=== PATIENT | female | born 1960 | race Caucasian/White ===

== ENCOUNTER → 2016-12-15 | Outpatient (CLI) | payer BC ==
[~2016-12-15] MED LIST: REGADENOSON 0.4 MG/5 ML SYRINGE IV ONE
--- NOTE | 2016-12-15 11:35 | NM ---
EXAMINATION TYPE: NM stress lexiscan cardiolite DATE OF EXAM: 12/15/2016 11:24 AM COMPARISON: NONE HISTORY: Chest pain TECHNIQUE: After the intravenous administration of 10.1 mCi Tc 99m Sestamibi - Cardiolite resting SP ECT images acquired 45 minutes post injection. The patient received 0.4mg Lexiscan, 26.4 mCi Tc 99m Sestamibi - Stress images obtained [address] injection FINDINGS: Review of stress and rest SPECT images demonstrates there is a fixed defect involving the apex and an terior wall the myocardium. Gated analysis shows normal wall motion with an estimated left ventricul ar ejection fraction of 62 %. IMPRESSION: 1. Fixed defect involving the myocardium suggestive of previous infarction. 2. No definite stress-induced reversibility.
--- NOTE | 2016-12-15 12:19 | EST ---
DATE OF SERVICE: 12/15/2016 AGE: 56Y SEX: F HT: 5'3" WT: 198 lbs. Protocol Jose: Other: Lexiscan Cardiolite Stage: Dur. of Exercise: *Heart Rate Blood Pressure *Rest: 66 Rest: 138/83 * *Max. Achieved: 91 Maximum BP: 151/70 85% PMHR: 100% PMHR: *METS: INDICATIONS: Chest pain. MEDICATIONS: Ibuprofen, Xanax. Patient was given Lexiscan injection over a period of 15 seconds. Peak heart rate of 91 was achieved. Maximum blood pressure of 151/70 mmHg was noted. Resting EKG shows normal sinus rhythm with normal LA interval and QRS duration and normal ST-T waves. No ST segment depression suggestive of ischemia is noted. The results of the nuclear study will follow.
== END | disposition home or self-care (01) ==
LOC: RADNMMAIN 08:25
PROVIDERS: ATTEND Family Medicine
DX: R07.9 Chest pain, unspecified (principal)
CPT/HCPCS: 93017; 78452; A9500; J2785

== ENCOUNTER 2018-02-19 17:40 | Inpatient (IN) | payer BC ==
[2018-02-19] MEDS ORDERED: ONDANSETRON 4 MG/2 ML VIAL IVP STA (19:21)
[2018-02-19] MEDS ORDERED: MORPHINE SULFATE 4 MG/ML SYRINGE IV STA (19:21)
[2018-02-19] MEDS ORDERED: SODIUM CHLORIDE 0.9% 1,000 ML IV STA (19:21)
[2018-02-19] MEDS ORDERED: ACETAMINOPHEN TAB 325 MG TAB PO STA (19:22)
--- NOTE | 2018-02-19 19:26 | ED ---
Abdominal Pain HPI <Manjit Black - Last Filed: 02/19/18 21:49> - General Source: patient Mode of arrival: ambulatory Limitations: no limitations <Emma Green - Last Filed: 02/19/18 22:00> - General Chief Complaint: Abdominal Pain Stated Complaint: abd pain Time Seen by Provider: 02/19/18 19:00 - History of Present Illness Initial Comments: 57-year-old female patient presents the emergency department today for evaluation of lower abdominal pain and fever. Patient states that she's been having pain in her abdomen for the last 4 days. Patient states the pain is located across her lower abdomen and is sharp in nature. States it radiates into her back. Patient states that yesterday she started to become very nauseous. She states that she has been constipated and passing only very small amounts of diarrhea type stool. States that her abdomen is very tender. States that yesterday she developed a fever, has been as high as 101.1F at home. She has no appetite and has not been eating. States that she does have a history of diverticulitis and her symptoms seem similar to when she's had that in the past. States the only abdominal surgery she has had was a tumor removed several years ago. She denies any hematochezia, melena, or hematemesis. States that she was having painful urination a couple of days ago but that seems to have resolved. She denies any hematuria, urinary frequency, urinary urgency. Patient denies any recent rash, shortness breath, chest pain, numbness, tingling, dizziness, weakness, hematuria, dysuria, urinary urgency, urinary frequency, headache, visual changes, or any other complaints. (Emma Green) - Related Data Home Medications Medication Instructions Recorded Confirmed ALPRAZolam 1 mg PO HS 01/05/16 02/19/18 Atorvastatin [Lipitor] 40 mg PO DAILY 06/28/17 02/19/18 Metoprolol Succinate (ER) [Toprol 25 mg PO DAILY 06/28/17 02/19/18 Xl] Triamterene-Hctz 37.5-25Mg 1 cap PO DAILY 06/28/17 02/19/18 [Dyazide 37.5-25 Capsule] Ciprofloxacin HCl [Cipro] 500 mg PO Q12HR 02/19/18 02/19/18 Phentermine HCl [Adipex-P] 37.5 mg PO QAM 02/19/18 02/19/18 Potassium 99 mg PO DAILY 02/19/18 02/19/18 Vitamin B Complex 1 cap PO DAILY 02/19/18 02/19/18 Allergies Allergy/AdvReac Type Severity Reaction Status Date / Time hydromorphone HCl AdvReac Severe Nausea & Verified 02/19/18 18:38 [From Dilaudid] Vomiting Review of Systems ROS Other: All systems not noted in ROS Statement are negative. <Manjit Black - Last Filed: 02/19/18 21:49> ROS Other: All systems not noted in ROS Statement are negative. <Emma Green - Last Filed: 02/19/18 22:00> ROS Statement: Those systems with pertinent positive or pertinent negative responses have been documented in the HPI. 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 History of Any Multi-Drug Resistant Organisms: None Reported Past Surgical History: Hysterectomy, Joint Replacement Additional Past Surgical History / Comment(s): Tie wrap for rectal fistula last colonoscopy less than one year ago, removal of ovarian tumor which was benign, bilateral bunionectomies, bilateral total knee replacements. 06/19/17 total breast reduction, left and liposuction. Past Anesthesia/Blood Transfusion Reactions: No Reported Reaction Smoking Status: Former smoker Past Alcohol Use History: None Reported Past Drug Use History: Marijuana - Past Family History Mother Family Medical History: Cancer, CVA/TIA Additional Family Medical History / Comment(s): Mother is alive in her 80s with history of CVA and resides in a fdc. Father Family Medical History: No Reported History Additional Family Medical History / Comment(s): Father is alive in his 80s with history of hypertension and benign brain tumor. Brother(s) Additional Family Medical History / Comment(s): She has 3 brothers and one has from a drug overdose. She does not have any sisters. She has one daughter that was an adopted niece. <Emma Green - Last Filed: 02/19/18 22:00> General Exam Limitations: no limitations General appearance: alert, in no apparent distress, other (Social well-developed , well-nourished adult female patient in mild distress related to pain. Vital signs upon presentation are temperature 99.5F, pulse 95, respirations 16, blood pressure 126/82, pulse ox 97% on room air.) Eye exam: Present: normal appearance, PERRL, EOMI. Absent: scleral icterus, conjunctival injection, periorbital swelling ENT exam: Present: normal exam, normal oropharynx, mucous membranes moist Respiratory exam: Present: normal lung sounds bilaterally. Absent: respiratory distress, wheezes, rales, rhonchi, stridor Cardiovascular Exam: Present: regular rate, normal rhythm, normal heart sounds. Absent: systolic murmur, diastolic murmur, rubs, gallop, clicks GI/Abdominal exam: Present: soft, tenderness (Lower abdominal tenderness worse over the left lower quadrant), normal bowel sounds. Absent: distended, guarding , rebound, rigid Neurological exam: Present: alert, oriented X3, CN II-XII intact Psychiatric exam: Present: normal affect, normal mood Skin exam: Present: warm, dry, intact, normal color. Absent: rash <Emma Green - Last Filed: 02/19/18 22:00> Course <Manjit Black - Last Filed: 02/19/18 21:49> <Emma Green - Last Filed: 02/19/18 22:00> Vital Signs 02/19/18 02/19/18 18:27 21:07 Temperature 99.5 F 99.4 F Pulse Rate 95 71 Respiratory 16 18 Rate Blood Pressure 126/82 102/51 O2 Sat by Pulse 97 96 Oximetry - Reevaluation(s) Reevaluation #1: 02/19/18 21:42 Patient meets sepsis criteria at this time. Antibiotics ordered. (Emma Green) Medical Decision Making - Lab Data Result diagrams: 02/19/18 19:50 02/19/18 19:50 <Manjit Black - Last Filed: 02/19/18 21:49> - Lab Data Result diagrams: 02/19/18 19:50 02/19/18 19:50 - Radiology Data Radiology results: report reviewed, image reviewed <Emma Green - Last Filed: 02/19/18 22:00> - Medical Decision Making Patient reevaluated by myself, Dr. Black. Abdomen soft with mild tenderness left lower abdomen. Patient and family are updated on results and plan. Case was discussed in detail with Dr. Rubalcava, who will admit for surgical call with IV antibiotics and will reevaluate in the morning. I reviewed and agree with. Findings included all diagnostic interpretation and treatment plan. (Manjit Black) 57-year-old female patient presented to emergency department today for evaluation of lower abdominal pain and fever. Physical examination did reveal lower abdominal tenderness worse in the left lower quadrant. Labs reviewed and did reveal a mildly elevated white blood cell count. Lactic acid was negative. Urine has been sent for culture. CT of the abdomen and pelvis was obtained and did show complicated diverticulitis with pericolonic abscess and microperforation. My attending Dr. Black did speak to the surgeon salon shampoo assistant Dr. Berg. Patient will be admitted for surgical evaluation. We did start Levaquin and Flagyl. Did inform patient and family of results and plan, they are agreeable. (Emma Green) - Lab Data Lab Results 02/19/18 02/19/18 02/19/18 Range/Units 19:50 19:50 19:50 WBC 11.3 H (3.8-10.6) k/uL RBC 4.69 (3.80-5.40) m/uL Hgb 13.3 (11.4-16.0) gm/dL Hct 39.6 (34.0-46.0) % MCV 84.5 (80.0-100.0) fL MCH 28.5 (25.0-35.0) pg MCHC 33.7 (31.0-37.0) g/dL RDW 13.5 (11.5-15.5) % Plt Count 333 (150-450) k/uL Neutrophils % 76 % Lymphocytes % 14 % Monocytes % 8 % Eosinophils % 1 % Basophils % 0 % Neutrophils # 8.6 H (1.3-7.7) k/uL Lymphocytes # 1.5 (1.0-4.8) k/uL Monocytes # 0.9 (0-1.0) k/uL Eosinophils # 0.1 (0-0.7) k/uL Basophils # 0.0 (0-0.2) k/uL Sodium 138 (137-145) mmol/L Potassium 3.8 (3.5-5.1) mmol/L Chloride 95 L (98-107) mmol/L Carbon Dioxide 32 H (22-30) mmol/L Anion Gap 11 mmol/L BUN 12 (7-17) mg/dL Creatinine 0.80 (0.52-1.04) mg/dL Est GFR (CKD-EPI)AfAm >90 (>60 ml/min/1.73 sqM) Est GFR (CKD-EPI)NonAf 84 (>60 ml/min/1.73 sqM) Glucose 99 (74-99) mg/dL Plasma Lactic Acid Bassam 0.9 (0.7-2.0) mmol/L Calcium 9.3 (8.4-10.2) mg/dL Total Bilirubin 0.5 (0.2-1.3) mg/dL AST 23 (14-36) U/L ALT 37 (9-52) U/L Alkaline Phosphatase 81 (38-126) U/L Total Protein 6.4 (6.3-8.2) g/dL Albumin 3.6 (3.5-5.0) g/dL Amylase 54 (30-110) U/L Lipase 81 (23-300) U/L Urine Color Urine Appearance (Clear) Urine pH (5.0-8.0) Ur Specific [place] (1.001-1.035) Urine Protein (Negative) Urine Glucose (UA) (Negative) Urine Ketones (Negative) Urine Blood (Negative) Urine Nitrite (Negative) Urine Bilirubin (Negative) Urine Urobilinogen (<2.0) mg/dL Ur Leukocyte Esterase (Negative) Urine RBC (0-5) /hpf Urine WBC (0-5) /hpf Ur Squamous Epith Cells (0-4) /hpf Urine Bacteria (None) /hpf Hyaline Casts (0-2) /lpf Urine Mucus (None) /hpf 02/19/18 Range/Units 19:50 WBC (3.8-10.6) k/uL RBC (3.80-5.40) m/uL Hgb (11.4-16.0) gm/dL Hct (34.0-46.0) % MCV (80.0-100.0) fL MCH (25.0-35.0) pg MCHC (31.0-37.0) g/dL RDW (11.5-15.5) % Plt Count (150-450) k/uL Neutrophils % % Lymphocytes % % Monocytes % % Eosinophils % % Basophils % % Neutrophils # (1.3-7.7) k/uL Lymphocytes # (1.0-4.8) k/uL Monocytes # (0-1.0) k/uL Eosinophils # (0-0.7) k/uL Basophils # (0-0.2) k/uL Sodium (137-145) mmol/L Potassium (3.5-5.1) mmol/L Chloride (98-107) mmol/L Carbon Dioxide (22-30) mmol/L Anion Gap mmol/L BUN (7-17) mg/dL Creatinine (0.52-1.04) mg/dL Est GFR (CKD-EPI)AfAm (>60 ml/min/1.73 sqM) Est GFR (CKD-EPI)NonAf (>60 ml/min/1.73 sqM) Glucose (74-99) mg/dL Plasma Lactic Acid Bassam (0.7-2.0) mmol/L Calcium (8.4-10.2) mg/dL Total Bilirubin (0.2-1.3) mg/dL AST (14-36) U/L ALT (9-52) U/L Alkaline Phosphatase (38-126) U/L Total Protein (6.3-8.2) g/dL Albumin (3.5-5.0) g/dL Amylase (30-110) U/L Lipase (23-300) U/L Urine Color Yellow Urine Appearance Cloudy H (Clear) Urine pH 5.5 (5.0-8.0) Ur Specific [place] 1.019 (1.001-1.035) Urine Protein 1+ H (Negative) Urine Glucose (UA) Negative (Negative) Urine Ketones Negative (Negative) Urine Blood Trace H (Negative) Urine Nitrite Negative (Negative) Urine Bilirubin Negative (Negative) Urine Urobilinogen <2.0 (<2.0) mg/dL Ur Leukocyte Esterase Small H (Negative) Urine RBC 1 (0-5) /hpf Urine WBC 15 H (0-5) /hpf Ur Squamous Epith Cells 9 H (0-4) /hpf Urine Bacteria Occasional H (None) /hpf Hyaline Casts 1 (0-2) /lpf Urine Mucus Rare H (None) /hpf - Radiology Data Computed tomography scan abdomen and pelvis with contrast was obtained. Report was reviewed in its entirety. Impression by Dr. Carty shows acute complicated sigmoid diverticulitis with pericolonic abscess and additional foci of loculated microperforation/free air. The approximately 3.3 x 4.0 x 3.3 cm pericolic abscess is seen along the mesenteric border of the sigmoid colon is intimately associated with the bowel wall and a portion that is possibly submucosal, therefore percutaneous drainage may not be accessible. (Emma Green) Disposition <Manjit Black - Last Filed: 02/19/18 21:49> Decision to Admit Reason: Admit from EC Decision Date: 02/19/18 Decision Time: 22:00 <Emma Green - Last Filed: 02/19/18 22:00> Clinical Impression: Diverticulitis of intestine with perforation and abscess, Sepsis Disposition: ADMITTED IP TO THIS [facility] Condition: Serious Referrals: Floyd Jorge DO [Primary Care Provider] - 1-2 days
[2018-02-19 20:12] LABS: Appearance,Urine Cloudy (Clear); Bacteria,Urine Occasional /hpf; Basophils % (A) 0 %; Bilirubin,Urine Negative (Negative); Blood,Urine Trace (Negative); Color,Urine Yellow; Eosinophils # (A) 0.1 k/uL (0-0.7); Eosinophils % (A) 1 %; Glucose,Urine (UA) Negative (Negative); HCT 39.6 % (34.0-46.0); HGB 13.3 gm/dL (11.4-16.0); Hyaline Casts,Urine 1 /lpf (0-2); Ketones,Urine Negative (Negative); Leukocyte Esterase,Urine Small (Negative); Lymphocytes # (A) 1.5 k/uL (1.0-4.8); Lymphocytes % (A) 14 %; MCH 28.5 pg (25.0-35.0); MCHC 33.7 g/dL (31.0-37.0); MCV 84.5 fL (80.0-100.0); Mean Platelet Volume 7.3; Monocytes # (A) 0.9 k/uL (0-1.0); Monocytes % (A) 8 %; Mucus,Urine Rare /hpf; Neutrophils # (A) 8.6 k/uL (1.3-7.7); Neutrophils % (A) 76 %; Nitrite,Urine Negative (Negative); PH, Urine 5.5 (5.0-8.0); Platelet Count 333 k/uL (150-450); Protein,Urine 1+ (Negative); RBC 4.69 m/uL (3.80-5.40); RBC,Urine 1 /hpf (0-5); RDW 13.5 % (11.5-15.5); Specific Gravity,Urine 1.019 (1.001-1.035); Squamous Epithelial Cell,Urine 9 /hpf (0-4); Urobilinogen,Urine <2.0 mg/dL (<2.0); WBC 11.3 k/uL (3.8-10.6); WBC,Urine 15 /hpf (0-5)
[2018-02-19 20:19] LABS: ALT 37 U/L (9-52); AST 23 U/L (14-36); Albumin 3.6 g/dL (3.5-5.0); Alkaline Phosphatase 81 U/L (38-126); Amylase 54 U/L (30-110); Anion Gap 11 mmol/L; Blood Urea Nitrogen 12 mg/dL (7-17); Calcium 9.3 mg/dL (8.4-10.2); Carbon Dioxide 32 mmol/L (22-30); Chloride 95 mmol/L (98-107); Glucose 99 mg/dL (74-99); Lipase 81 U/L (23-300); Potassium 3.8 mmol/L (3.5-5.1); Sodium 138 mmol/L (137-145); Total Bilirubin 0.5 mg/dL (0.2-1.3); Total Protein 6.4 g/dL (6.3-8.2)
--- NOTE | 2018-02-19 21:29 | CT ---
EXAMINATION TYPE: CT abdomen pelvis w con DATE OF EXAM: 02/19/2018 HISTORY: Abdominal pain with nausea CT DLP: 1106.4mGycm Automated Exposure Control for Dose Reduction was Utilized. CONTRAST: CT scan of the abdomen and pelvis is performed with IV Contrast, patient injected with 100 mL of Isov ue 300. COMPARISON: None. FINDINGS: LUNG BASES: No significant abnormality is appreciated. LIVER/GB: There is a fluid attenuated left hepatic lobe cyst measuring 1.4 cm. Remainder the liver is grossly unremarkable. No radiopaque gallstones. PANCREAS: No significant abnormality is seen. No ductal dilatation. SPLEEN: Small splenule seen adjacent to the port lions spleen. No splenomegaly. ADRENALS: No significant abnormality is seen. KIDNEYS: No significant abnormality is seen. BOWEL: There is an approximately 3.3 x 4.0 x 3.3 cm pericolonic abscess with air-fluid level and nume eva foci of internal air along the mesenteric border of the sigmoid colon with associated surroundin g inflammatory fat stranding and phlegmonous changes. Other encapsulated foci of free air are seen mo re anteriorly on series 3 image 67. This is indicative of microperforation of acute diverticulitis. T here is associated bowel wall thickening and hyperemia as well as fascial plane thickening. No second kulwinder colonic ileus or obstruction is seen. UTERUS/ADNEXA: Uterus appears surgically absent. LYMPH NODES: No greater than 1cm abdominal or pelvic lymph nodes are appreciated. OSSEOUS STRUCTURES: Osseous structures appear intact.. OTHER: Moderate calcific and noncalcific atheromatous plaquing is seen of the abdominal aorta and its branches. Abdominal aorta is of normal course and caliber. IMPRESSION: Acute complicated sigmoid diverticulitis with pericolonic abscess and additional foci of loculated microperforation/free air. The approximately 3.3 x 4.0 x 3.3 cm pericolonic abscess is seen along the mesenteric border of the sigmoid colon and is intimately associated with the bowel wall wi th a portion that is possibly submucosal, therefore percutaneous drainage may not be accessible.
[2018-02-19] MEDS ORDERED: metroNIDAZOLE-NS PMX 500 MG in SALINE 1 100ML.BAG IVPB STA (21:38)
[2018-02-19] MEDS ORDERED: MORPHINE SULFATE 4 MG/ML SYRINGE IVP STA (21:38)
[2018-02-19] MEDS ORDERED: LEVOFLOXACIN 750MG-D5W PMX 750 MG in DEXTROSE/WATER 1 150ML.BAG IVPB STA (21:38)
[2018-02-19] MEDS ORDERED: NALOXONE 0.4 MG/ML 1 ML VIAL IV PRN (21:55)
[2018-02-19 23:04] VITALS: BMI 37.3
[2018-02-19] MEDS: SODIUM CHLORIDE 0.9% 1,000 ML IV SCH (23:55)
[2018-02-20] MEDS: LORazepam 2 MG/ML INJ IV PRN ×2 (00:09→22:09)
[2018-02-20] MEDS: ONDANSETRON 4 MG/2 ML VIAL IVP PRN ×3 (00:12→17:04)
[2018-02-20] MEDS: MORPHINE SULFATE 4 MG/ML SYRINGE IV PRN ×3 (04:55→18:41)
[2018-02-20 07:29] LABS: Basophils % (A) 0 %; Eosinophils # (A) 0.1 k/uL (0-0.7); Eosinophils % (A) 1 %; HGB 11.5 gm/dL (11.4-16.0); Lymphocytes # (A) 1.2 k/uL (1.0-4.8); Lymphocytes % (A) 14 %; MCH 27.7 pg (25.0-35.0); MCV 86.5 fL (80.0-100.0); Mean Platelet Volume 7.2; Monocytes # (A) 0.5 k/uL (0-1.0); Monocytes % (A) 6 %; Neutrophils # (A) 6.1 k/uL (1.3-7.7); Neutrophils % (A) 76 %; Platelet Count 289 k/uL (150-450); RBC 4.16 m/uL (3.80-5.40); RDW 13.5 % (11.5-15.5)
[2018-02-20 07:54] LABS: ALT 28 U/L (9-52); AST 18 U/L (14-36); Albumin 2.9 g/dL (3.5-5.0); Alkaline Phosphatase 64 U/L (38-126); Anion Gap 7 mmol/L; Blood Urea Nitrogen 10 mg/dL (7-17); Calcium 8.3 mg/dL (8.4-10.2); Carbon Dioxide 31 mmol/L (22-30); Chloride 101 mmol/L (98-107); Glucose 91 mg/dL (74-99); Potassium 3.7 mmol/L (3.5-5.1); Sodium 139 mmol/L (137-145); Total Bilirubin 0.3 mg/dL (0.2-1.3); Total Protein 5.2 g/dL (6.3-8.2)
[2018-02-20] MEDS: SODIUM CHLORIDE 0.9% 1,000 ML IV SCH (12:52)
--- NOTE | 2018-02-20 19:01 | P.GSHP ---
History of Present Illness H&P Date: 02/20/18 Chief Complaint: Left lower quadrant pain This a 57-year-old female who was admitted through the emergency room with complaints of severe left lower quadrant pain. Patient was worked up with CAT scan. Senna evidence of active diverticulitis with a possible mural wall abscess. Patient states her pain is mainly left lower quadrant. She's had it for several days. 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 History of Any Multi-Drug Resistant Organisms: None Reported Past Surgical History: Hysterectomy, Joint Replacement Additional Past Surgical History / Comment(s): Tie wrap for rectal fistula last colonoscopy less than one year ago, removal of ovarian tumor which was benign, bilateral bunionectomies, bilateral total knee replacements. 06/19/17 total breast reduction, left and liposuction. Past Anesthesia/Blood Transfusion Reactions: No Reported Reaction Past Psychological History: Depression Smoking Status: Former smoker Past Alcohol Use History: None Reported Additional Past Alcohol Use History / Comment(s): Patient is a smoker one pack per day since she was 16 years of age. She denies any medical marijuana, marijuana, street drug or alcohol use. She works cleaning homes. Past Drug Use History: Marijuana - Past Family History Mother Family Medical History: Cancer, CVA/TIA Additional Family Medical History / Comment(s): Mother is alive in her 80s with history of CVA and resides in a [facility]. Father Family Medical History: No Reported History Additional Family Medical History / Comment(s): Father is alive in his 80s with history of hypertension and benign brain tumor. Brother(s) Additional Family Medical History / Comment(s): She has 3 brothers and one has from a drug overdose. She does not have any sisters. She has one daughter that was an adopted niece. Medications and Allergies Home Medications Medication Instructions Recorded Confirmed Type ALPRAZolam 1 mg PO HS 01/04/02/19/18 History Atorvastatin [Lipitor] 40 mg PO DAILY 06/28/17 02/19/18 History Metoprolol Succinate (ER) [Toprol 25 mg PO DAILY 06/28/17 02/19/18 History Xl] Triamterene-Hctz 37.5-25Mg 1 cap PO DAILY 06/28/17 02/19/18 History [Dyazide 37.5-25 Capsule] Ciprofloxacin HCl [Cipro] 500 mg PO Q12HR 02/19/18 02/19/18 History Phentermine HCl [Adipex-P] 37.5 mg PO QAM 02/19/18 02/19/18 History Potassium 99 mg PO DAILY 02/19/18 02/19/18 History Vitamin B Complex 1 cap PO DAILY 02/19/18 02/19/18 History Allergies Allergy/AdvReac Type Severity Reaction Status Date / Time hydromorphone HCl AdvReac Severe Nausea & Verified 02/19/18 18:38 [From Dilaudid] Vomiting Surgical - Exam Vital Signs Temp Pulse Resp BP Pulse Ox 99.5 F 95 16 126/82 97 02/19/18 18:27 02/19/18 18:27 02/19/18 18:27 02/19/18 18:27 02/19/18 18:27 - General well developed, moderate distress - Eyes PERRL - ENT normal pinna - Neck no masses - Respiratory normal expansion - Cardiovascular Rhythm: regular - Abdomen Marked left lower quadrant tenderness Abdomen: soft Results - Labs 02/20/18 06:38 02/20/18 06:38 Abnormal Lab Results - Last 24 Hours (Table) 02/19/18 02/19/18 02/19/18 Range/Units 19:50 19:50 19:50 WBC 11.3 H (3.8-10.6) k/uL Neutrophils # 8.6 H (1.3-7.7) k/uL Chloride 95 L (98-107) mmol/L Carbon Dioxide 32 H (22-30) mmol/L Calcium (8.4-10.2) mg/dL Total Protein (6.3-8.2) g/dL Albumin (3.5-5.0) g/dL Urine Appearance Cloudy H (Clear) Urine Protein 1+ H (Negative) Urine Blood Trace H (Negative) Ur Leukocyte Esterase Small H (Negative) Urine WBC 15 H (0-5) /hpf Ur Squamous Epith Cells 9 H (0-4) /hpf Urine Bacteria Occasional H (None) /hpf Urine Mucus Rare H (None) /hpf 02/20/18 Range/Units 06:38 WBC (3.8-10.6) k/uL Neutrophils # (1.3-7.7) k/uL Chloride (98-107) mmol/L Carbon Dioxide 31 H (22-30) mmol/L Calcium 8.3 L (8.4-10.2) mg/dL Total Protein 5.2 L (6.3-8.2) g/dL Albumin 2.9 L (3.5-5.0) g/dL Urine Appearance (Clear) Urine Protein (Negative) Urine Blood (Negative) Ur Leukocyte Esterase (Negative) Urine WBC (0-5) /hpf Ur Squamous Epith Cells (0-4) /hpf Urine Bacteria (None) /hpf Urine Mucus (None) /hpf Microbiology - Last 24 Hours (Table) 02/19/18 20:46 Urine Culture - Preliminary Urine,Voided Diabetes panel 02/19/18 02/20/18 Range/Units 19:50 06:38 Sodium 138 139 (137-145) mmol/L Potassium 3.8 3.7 (3.5-5.1) mmol/L Chloride 95 L 101 (98-107) mmol/L Carbon Dioxide 32 H 31 H (22-30) mmol/L BUN 12 10 (7-17) mg/dL Creatinine 0.80 0.65 (0.52-1.04) mg/dL Glucose 99 91 (74-99) mg/dL Calcium 9.3 8.3 L (8.4-10.2) mg/dL AST 23 18 (14-36) U/L ALT 37 28 (9-52) U/L Alkaline Phosphatase 81 64 (38-126) U/L Total Protein 6.4 5.2 L (6.3-8.2) g/dL Albumin 3.6 2.9 L (3.5-5.0) g/dL Calcium panel 02/19/18 02/20/18 Range/Units 19:50 06:38 Calcium 9.3 8.3 L (8.4-10.2) mg/dL Albumin 3.6 2.9 L (3.5-5.0) g/dL Pituitary panel 02/19/18 02/20/18 Range/Units 19:50 06:38 Sodium 138 139 (137-145) mmol/L Potassium 3.8 3.7 (3.5-5.1) mmol/L Chloride 95 L 101 (98-107) mmol/L Carbon Dioxide 32 H 31 H (22-30) mmol/L BUN 12 10 (7-17) mg/dL Creatinine 0.80 0.65 (0.52-1.04) mg/dL Glucose 99 91 (74-99) mg/dL Calcium 9.3 8.3 L (8.4-10.2) mg/dL Adrenal panel 02/19/18 02/20/18 Range/Units 19:50 06:38 Sodium 138 139 (137-145) mmol/L Potassium 3.8 3.7 (3.5-5.1) mmol/L Chloride 95 L 101 (98-107) mmol/L Carbon Dioxide 32 H 31 H (22-30) mmol/L BUN 12 10 (7-17) mg/dL Creatinine 0.80 0.65 (0.52-1.04) mg/dL Glucose 99 91 (74-99) mg/dL Calcium 9.3 8.3 L (8.4-10.2) mg/dL Total Bilirubin 0.5 0.3 (0.2-1.3) mg/dL AST 23 18 (14-36) U/L ALT 37 28 (9-52) U/L Alkaline Phosphatase 81 64 (38-126) U/L Total Protein 6.4 5.2 L (6.3-8.2) g/dL Albumin 3.6 2.9 L (3.5-5.0) g/dL - Imaging CT scan - pelvis: report reviewed (Acute diverticulitis with abscess measuring 3 x 4 cm along the mesenteric border of the colon.) Assessment and Plan Assessment: Acute diverticulitis. Patient will be observed she is currently receiving IV antibiotics. If her condition does not improve she may need exploratory laparotomy with possible colostomy. I discussed the slight the patient and her .
[2018-02-21] MEDS: MORPHINE SULFATE 4 MG/ML SYRINGE IV PRN ×3 (03:30→19:15)
[2018-02-21] MEDS: SODIUM CHLORIDE 0.9% 1,000 ML IV SCH ×2 (03:35→14:34)
[2018-02-21] MEDS: ACETAMINOPHEN TAB 325 MG TAB PO PRN (07:49)
[2018-02-21] MEDS: PIPERACILLIN-TAZOBACTAM 3.375 GM in DEXTROSE/WATER 1 50ML.BAG IVPB SCH ×2 (11:10→16:03)
--- NOTE | 2018-02-21 11:35 | P.PN ---
Subjective Progress Note Date: 02/21/18 57-year-old female seen this morning at the bedside. Patient states abdominal pain significantly improved. Patient indicated that initially was having severe left lower quadrant abdominal pain which has since resolved. CAT scan showed evidence of acute diverticulitis with possible mural abscess. Patient is asking for diet to be advanced. Currently on IV Zosyn and afebrile labs pending Objective - Vital Signs Vital signs: Vital Signs Temp 97.9 F 02/21/18 08:16 Pulse 96 02/21/18 08:16 Resp 18 02/21/18 08:16 BP 137/86 02/21/18 08:16 Pulse Ox 95 02/21/18 00:01 Intake & Output 02/20/18 02/21/18 02/21/18 18:59 06:59 18:59 Other: # Voids 1 1 - Exam Physical exam 57-year-old female sitting up in bed appears in no acute distress Lungs clear adequate air movement Heart S1-S2 audible regular Abdomen soft no facial grimacing" with palpitation to the abdominal wall bowel tones present states passing gas no stool mild tenderness to the left lower quadrant nondistended Extremities no edema - Labs CBC & Chem 7: 02/20/18 06:38 02/20/18 06:38 Labs: Microbiology - Last 24 Hours (Table) 02/19/18 19:50 Blood Culture - Preliminary Blood No Growth after 24 hours 02/19/18 20:46 Urine Culture - Preliminary Urine,Voided Assessment and Plan Assessment: Impression Present on admission left lower quadrant abdominal pain suspect due to acute diverticulitis with abscess measuring 3 x 4 cm along the mesenteric border of the colon Plan IV antibiotics Zosyn as ordered Pain control DVT and GI prophylaxis Nothing by mouth except ice chips popsicles clear liquid Will follow with further surgical recommendations The above impression and plan of care have been discussed and directed by signing physician. Bertha Marr nurse practitioner acting as scribe for signing physician.
[2018-02-21 11:43] LABS: Basophils % (A) 0 %; Eosinophils # (A) 0.2 k/uL (0-0.7); Eosinophils % (A) 2 %; HCT 37.8 % (34.0-46.0); HGB 12.2 gm/dL (11.4-16.0); Lymphocytes # (A) 1.4 k/uL (1.0-4.8); Lymphocytes % (A) 18 %; MCH 28.6 pg (25.0-35.0); MCHC 32.3 g/dL (31.0-37.0); MCV 88.7 fL (80.0-100.0); Mean Platelet Volume 6.7; Monocytes # (A) 0.4 k/uL (0-1.0); Monocytes % (A) 6 %; Neutrophils # (A) 5.6 k/uL (1.3-7.7); Neutrophils % (A) 72 %; Platelet Count 315 k/uL (150-450); RBC 4.27 m/uL (3.80-5.40); RDW 13.5 % (11.5-15.5); WBC 7.8 k/uL (3.8-10.6)
[2018-02-21 11:54] LABS: ALT 33 U/L (9-52); AST 21 U/L (14-36); Albumin 3.1 g/dL (3.5-5.0); Alkaline Phosphatase 62 U/L (38-126); Anion Gap 12 mmol/L; Blood Urea Nitrogen 11 mg/dL (7-17); Calcium 8.8 mg/dL (8.4-10.2); Carbon Dioxide 24 mmol/L (22-30); Chloride 103 mmol/L (98-107); Glucose 72 mg/dL (74-99); Potassium 3.8 mmol/L (3.5-5.1); Sodium 139 mmol/L (137-145); Total Bilirubin 0.4 mg/dL (0.2-1.3); Total Protein 5.4 g/dL (6.3-8.2)
[2018-02-21] MEDS: METOPROLOL SUCCINATE (ER) 25 MG TAB.ER.24H PO SCH (14:33)
--- NOTE | 2018-02-21 16:28 | P.CONS ---
History of Present Illness - Reason for Consult Recommendations regarding antihypertensive medications - History of Present Illness Patient is a pleasant 57-year-old female is admitted for left lower quadrant abdominal pain nausea vomiting found to have acute diverticulitis with microperforation and a contained abscess. Patient was recently discharged to from the ER after she was diagnosed with possible urinary tract infection was discharged on Cipro comes back to following day didn't even take a couple of Cipro because she was throwing up. Patient is on diuretic therapy for bilateral pedal edema was started by her [employer] doctor. Patient also take metoprolol for Hypertension. Patient blood pressure is as low as 90 systolic on this admission patient is receiving IV fluids at this time. Patient nausea vomiting improved patient abdominal pain improved. Review of Systems REVIEW OF SYSTEMS: CONSTITUTIONAL: No fever, no malaise, no fatigue. HEENT: No recent visual problems or hearing problems. Denied any sore throat. CARDIOVASCULAR: No chest pain, orthopnea, PND, no palpitations, no syncope. PULMONARY: No shortness of breath, no cough, no hemoptysis. GASTROINTESTINAL: As mentioned in HPI NEUROLOGICAL: No headaches, no weakness, no numbness. HEMATOLOGICAL: Denies any bleeding or petechiae. GENITOURINARY: Denies any burning micturition, frequency, or urgency. MUSCULOSKELETAL/RHEUMATOLOGICAL: Denies any joint pain, swelling, or any muscle pain. ENDOCRINE: Denies any polyuria or polydipsia. The rest of the 14-point review of systems is negative. 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 History of Any Multi-Drug Resistant Organisms: None Reported Past Surgical History: Hysterectomy, Joint Replacement Additional Past Surgical History / Comment(s): Tie wrap for rectal fistula last colonoscopy less than one year ago, removal of ovarian tumor which was benign, bilateral bunionectomies, bilateral total knee replacements. 06/19/17 total breast reduction, left and liposuction. Past Anesthesia/Blood Transfusion Reactions: No Reported Reaction Past Psychological History: Depression Smoking Status: Former smoker Past Alcohol Use History: None Reported Additional Past Alcohol Use History / Comment(s): Patient is a smoker one pack per day since she was 16 years of age. She denies any medical marijuana, marijuana, street drug or alcohol use. She works cleaning homes. Past Drug Use History: Marijuana - Past Family History Mother Family Medical History: Cancer, CVA/TIA Additional Family Medical History / Comment(s): Mother is alive in her 80s with history of CVA and resides in a intermediate. Father Family Medical History: No Reported History Additional Family Medical History / Comment(s): Father is alive in his 80s with history of hypertension and benign brain tumor. Brother(s) Additional Family Medical History / Comment(s): She has 3 brothers and one has from a drug overdose. She does not have any sisters. She has one daughter that was an adopted niece. Medications and Allergies Home Medications Medication Instructions Recorded Confirmed Type ALPRAZolam 1 mg PO HS 01/05/16 02/19/18 History Atorvastatin [Lipitor] 40 mg PO DAILY 06/28/17 02/19/18 History Metoprolol Succinate (ER) [Toprol 25 mg PO DAILY 06/28/17 02/19/18 History Xl] Triamterene-Hctz 37.5-25Mg 1 cap PO DAILY 06/28/17 02/19/18 History [Dyazide 37.5-25 Capsule] Ciprofloxacin HCl [Cipro] 500 mg PO Q12HR 02/19/18 02/19/18 History Phentermine HCl [Adipex-P] 37.5 mg PO QAM 02/19/18 02/19/18 History Potassium 99 mg PO DAILY 02/19/18 02/19/18 History Vitamin B Complex 1 cap PO DAILY 02/19/18 02/19/18 History Allergies Allergy/AdvReac Type Severity Reaction Status Date / Time hydromorphone HCl AdvReac Severe Nausea & Verified 02/19/18 18:38 [From Dilaudid] Vomiting Physical Exam Vitals: Vital Signs Temp Pulse Pulse Resp BP Pulse Ox 02/21/18 14:45 98.3 F 60 16 117/75 96 02/21/18 08:16 97.9 F 64 96 18 137/86 02/21/18 00:01 98.0 F 74 14 97/64 95 02/20/18 20:10 97.7 F 70 16 130/79 95 Intake and Output 02/21/18 02/21/18 02/21/18 06:59 14:59 22:59 Intake Total 450 Balance 450 Intake: Intake, IV Titration 450 Amount Sodium Chloride 0.9% 1, 450 000 ml @ 75 mls/hr IV . [id number] [facility] Rx#:[id number] Other: # Voids 1 PHYSICAL EXAMINATION: GENERAL: The patient is alert and oriented x3, not in any acute distress. Well developed, well nourished. HEENT: Pupils are round and equally reacting to light. EOMI. No scleral icterus. No conjunctival pallor. Normocephalic, atraumatic. No pharyngeal erythema. No thyromegaly. CARDIOVASCULAR: S1 and S2 present. No murmurs, rubs, or gallops. PULMONARY: Chest is clear to auscultation, no wheezing or crackles. ABDOMEN: Soft, nontender, nondistended, normoactive bowel sounds. No palpable organomegaly. MUSCULOSKELETAL: No joint swelling or deformity. EXTREMITIES: No cyanosis, clubbing, or pedal edema. NEUROLOGICAL: Gross neurological examination did not reveal any focal deficits. SKIN: No rashes. Results CBC & Chem 7: 02/21/18 11:25 02/21/18 11:25 Labs: Abnormal Lab Results - Last 24 Hours (Table) 02/21/18 Range/Units 11:25 Glucose 72 L (74-99) mg/dL Total Protein 5.4 L (6.3-8.2) g/dL Albumin 3.1 L (3.5-5.0) g/dL Microbiology - Last 24 Hours (Table) 02/19/18 20:46 Urine Culture - Final Urine,Voided 02/19/18 19:50 Blood Culture - Preliminary Blood No Growth after 24 hours Assessment and Plan Plan: -Diverticulitis with contained microperforation and a small abscess: No surgical intervention is being planned and patient is on IV antiemetics which will be continued and monitored. -Hypertension: Skull metoprolol to avoid reflux tachycardia. I'll discontinue diuretic therapy as this leading to hypotension. -Severe osteoarthritis. -Hyperlipidemia continue with statin.
[2018-02-21] MEDS: ONDANSETRON 4 MG/2 ML VIAL IVP PRN (20:24)
[2018-02-21] MEDS: LORazepam 2 MG/ML INJ IV PRN (22:39)
[2018-02-22] MEDS: PIPERACILLIN-TAZOBACTAM 3.375 GM in DEXTROSE/WATER 1 50ML.BAG IVPB SCH ×3 (00:41→16:05)
[2018-02-22] MEDS: SODIUM CHLORIDE 0.9% 1,000 ML IV SCH ×2 (02:19→18:03)
[2018-02-22] MEDS: ATORVASTATIN 40 MG TAB PO SCH (08:56)
[2018-02-22] MEDS: METOPROLOL SUCCINATE (ER) 25 MG TAB.ER.24H PO SCH (08:56)
[2018-02-22] MEDS: PANTOPRAZOLE 40 MG/10 ML VIAL IVP SCH (08:56)
[2018-02-22] MEDS: MORPHINE SULFATE 4 MG/ML SYRINGE IV PRN (10:13)
[2018-02-22] MEDS: ACETAMINOPHEN TAB 325 MG TAB PO PRN (12:27)
--- NOTE | 2018-02-22 14:33 | P.PN ---
Subjective Progress Note Date: 02/22/18 Principal diagnosis: Diverticulitis Patient doing well today. Tolerating clears. She is passing flatus. No bowel movement. No labs from today. She is hungry. Objective - Vital Signs Vital signs: Vital Signs Temp 98.7 F 02/22/18 07:50 Pulse 70 02/22/18 07:50 Resp 14 02/22/18 07:50 BP 150/81 02/22/18 07:50 Pulse Ox 96 02/22/18 07:50 Intake & Output 02/21/18 02/22/18 02/22/18 18:59 06:59 18:59 Intake Total 450 700 480 Balance 450 700 480 Weight 95.708 kg Intake: Intake, IV Titration 450 600 Amount Sodium Chloride 0.9% 1, 450 600 000 ml @ 75 mls/hr IV . [id number] [facility] Rx#:[id number] Oral 100 480 Other: Voiding Method Toilet # Voids 2 1 - Exam Abdomen: Soft, nondistended, minimal left lower quadrant tenderness - Labs CBC & Chem 7: 02/21/18 11:25 02/21/18 11:25 Labs: Microbiology - Last 24 Hours (Table) 02/19/18 19:50 Blood Culture - Preliminary Blood No Growth after 48 hours 02/19/18 20:46 Urine Culture - Final Urine,Voided Assessment and Plan (1) Diverticulitis of intestine with perforation and abscess Narrative/Plan: Continue antibiotics. Advance diet. Ambulate. Current Visit: Yes Status: Acute Code(s): K57.80 - DVTRCLI OF INTEST, PART UNSP, W PERF AND ABSCESS W/O BLEED SNOMED Code(s): 727296699
--- NOTE | 2018-02-22 14:43 | P.PN ---
Subjective Patient's abdominal pain is much better today. No nausea no vomiting patient is able to tolerate full liquid diet today which will be advanced. Patient is presently on Zosyn for diverticulitis with the intramural abscess Constitutional: Denied any fatigue denied any fever. Cardio vascular: denied any chest pain, palpitations Gastrointestinal denied any nausea vomiting Pulmonary: Denied any shortness of breath cough Neurologic denied any new focal deficits Objective - Vital Signs Vital signs: Vital Signs Temp 98.7 F 02/22/18 07:50 Pulse 70 02/22/18 07:50 Resp 14 02/22/18 07:50 BP 150/81 02/22/18 07:50 Pulse Ox 96 02/22/18 07:50 Intake & Output 02/21/18 02/22/18 02/22/18 18:59 06:59 18:59 Intake Total 450 700 480 Balance 450 700 480 Weight 95.708 kg Intake: Intake, IV Titration 450 600 Amount Sodium Chloride 0.9% 1, 450 600 000 ml @ 75 mls/hr IV . [id number] [facility] Rx#:[id number] Oral 100 480 Other: Voiding Method Toilet # Voids 2 1 - Exam PHYSICAL EXAMINATION: GENERAL: The patient is alert and oriented x3, not in any acute distress. Well developed, well nourished. HEENT: Pupils are round and equally reacting to light. EOMI. No scleral icterus. No conjunctival pallor. Normocephalic, atraumatic. No pharyngeal erythema. No thyromegaly. CARDIOVASCULAR: S1 and S2 present. No murmurs, rubs, or gallops. PULMONARY: Chest is clear to auscultation, no wheezing or crackles. ABDOMEN: Soft, nontender, nondistended, normoactive bowel sounds. No palpable organomegaly. MUSCULOSKELETAL: No joint swelling or deformity. EXTREMITIES: No cyanosis, clubbing, or pedal edema. NEUROLOGICAL: Gross neurological examination did not reveal any focal deficits. SKIN: No rashes. - Labs CBC & Chem 7: 02/21/18 11:25 02/21/18 11:25 Labs: Microbiology - Last 24 Hours (Table) 02/19/18 19:50 Blood Culture - Preliminary Blood No Growth after 48 hours 02/19/18 20:46 Urine Culture - Final Urine,Voided Assessment and Plan Plan: -Diverticulitis with contained microperforation and a small abscess: No surgical intervention is being planned and patient is on IV antiemetics which will be continued and monitored. -Hypertension: Continue metoprolol to avoid reflux tachycardia. Discontinued diuretic therapy will continue to monitor -Severe osteoarthritis. -Hyperlipidemia continue with statin.
[2018-02-22] MEDS: ALPRAZolam 1 MG TAB PO PRN (20:48)
[2018-02-23] MEDS: PIPERACILLIN-TAZOBACTAM 3.375 GM in DEXTROSE/WATER 1 50ML.BAG IVPB SCH ×4 (00:21→23:12)
[2018-02-23] MEDS: MORPHINE SULFATE 4 MG/ML SYRINGE IV PRN ×2 (02:49→14:53)
[2018-02-23 06:50] LABS: Basophils % (A) 0 %; Eosinophils # (A) 0.3 k/uL (0-0.7); Eosinophils % (A) 5 %; HCT 35.1 % (34.0-46.0); HGB 11.5 gm/dL (11.4-16.0); Lymphocytes # (A) 2.1 k/uL (1.0-4.8); Lymphocytes % (A) 37 %; MCH 27.9 pg (25.0-35.0); MCHC 32.7 g/dL (31.0-37.0); MCV 85.4 fL (80.0-100.0); Mean Platelet Volume 7.5; Monocytes # (A) 0.4 k/uL (0-1.0); Monocytes % (A) 7 %; Neutrophils # (A) 2.6 k/uL (1.3-7.7); Neutrophils % (A) 47 %; Platelet Count 337 k/uL (150-450); RBC 4.12 m/uL (3.80-5.40); RDW 13.5 % (11.5-15.5); WBC 5.5 k/uL (3.8-10.6)
[2018-02-23] MEDS: METOPROLOL SUCCINATE (ER) 25 MG TAB.ER.24H PO SCH (08:38)
[2018-02-23] MEDS: PANTOPRAZOLE 40 MG/10 ML VIAL IVP SCH (08:38)
[2018-02-23] MEDS: ATORVASTATIN 40 MG TAB PO SCH (08:38)
--- NOTE | 2018-02-23 10:22 | P.PN ---
Subjective Progress Note Date: 02/23/18 Principal diagnosis: Diverticulitis Patient feels better today. Pain improved. White blood cell count is normal. Tolerating full liquids. Hungry for more to eat. Objective - Vital Signs Vital signs: Vital Signs Temp 98.7 F 02/23/18 07:00 Pulse 50 L 02/23/18 07:00 Resp 16 02/23/18 07:00 BP 114/78 02/23/18 07:00 Pulse Ox 98 02/23/18 07:00 Intake & Output 02/22/18 02/23/18 02/23/18 18:59 06:59 18:59 Intake Total 1205 1000 240 Balance 1205 1000 240 Weight 95.708 kg Intake: Intake, IV Titration 725 650 Amount Piperacillin-Tazobactam 3 50 50 .375 gm In Dextrose/Water 1 50ml.bag @ 12.5 mls/hr IVPB Q8HR [facility] Rx#: [id number] Sodium Chloride 0.9% 1, 675 600 000 ml @ 75 mls/hr IV . [id number] [facility] Rx#:[id number] Oral 480 350 240 Other: Voiding Method Toilet Toilet # Voids 2 3 # Bowel Movements 1 - Exam Abdomen: Soft, nondistended, minimal left lower quadrant tenderness - Labs CBC & Chem 7: 02/23/18 05:37 02/21/18 11:25 Labs: Microbiology - Last 24 Hours (Table) 02/19/18 19:50 Blood Culture - Preliminary Blood No Growth after 72 hours Assessment and Plan (1) Diverticulitis of intestine with perforation and abscess Narrative/Plan: Will increase diet. Anticipate discharge tomorrow. Current Visit: Yes Status: Acute Code(s): K57.80 - DVTRCLI OF INTEST, PART UNSP, W PERF AND ABSCESS W/O BLEED SNOMED Code(s): 986648312
[2018-02-23] MEDS: SODIUM CHLORIDE 0.9% 1,000 ML IV SCH ×2 (19:01→19:31)
[2018-02-23] MEDS ORDERED: MORPHINE ORAL SOLN 10 MG/5 ML CUP PO PRN (19:02)
[2018-02-23] MEDS ORDERED: HYDROcodone/APAP 5-325MG 1 EACH TAB PO PRN (19:27)
[2018-02-23] MEDS: ALPRAZolam 1 MG TAB PO PRN (21:51)
[2018-02-24] MEDS ORDERED: PANTOPRAZOLE 40 MG TABLET PO SCH (07:30)
[2018-02-24] MEDS: PIPERACILLIN-TAZOBACTAM 3.375 GM in DEXTROSE/WATER 1 50ML.BAG IVPB SCH (08:16)
[2018-02-24] MEDS: METOPROLOL SUCCINATE (ER) 25 MG TAB.ER.24H PO SCH (08:17)
[2018-02-24] MEDS: ATORVASTATIN 40 MG TAB PO SCH (08:18)
[2018-02-24 08:24] VITALS: BP 145/87; PULSE 64; RESP 16; TEMP 97.6
--- NOTE | 2018-02-24 10:01 | P.DS ---
Providers Date of admission: 02/19/18 21:50 Expected date of discharge: 02/24/18 Attending physician: Lawrence Berg Consults: 02/20/18 19:02 Consult Physician Routine Consulting Provider: Carlos Pineda Consult Reason/Comments: Medical management Do you want consulting provider notified?: Yes Primary care physician: Floyd Jorge - Discharge Diagnosis(es) (1) Diverticulitis of intestine with perforation and abscess Please refer to the patient's recent history and physical and follow-up progress notes including consults. Patient was admitted with diverticulitis and microperforation. She was treated nonoperatively. The patient has done well. She is currently tolerating her diet. She is afebrile. White blood cell count is normal. Abdomen is soft nontender nondistended. We'll discharged today with plans for outpatient follow-up with Dr. Berg in 1 week. Current Visit: Yes Status: Acute Patient Condition at Discharge: Serious Plan - Discharge Summary Discharge Rx Participant: Yes New Discharge Prescriptions: Discontinued Triamterene-Hctz 37.5-25Mg [Dyazide 37.5-25 Capsule] 1 cap PO DAILY No Action ALPRAZolam 1 mg PO HS Metoprolol Succinate (ER) [Toprol Xl] 25 mg PO DAILY Atorvastatin [Lipitor] 40 mg PO DAILY Vitamin B Complex 1 cap PO DAILY Potassium 99 mg PO DAILY Phentermine HCl [Adipex-P] 37.5 mg PO QAM Ciprofloxacin HCl [Cipro] 500 mg PO Q12HR Discharge Medication List ALPRAZolam 1 mg PO HS 01/05/16 [History] Atorvastatin [Lipitor] 40 mg PO DAILY 06/28/17 [History] Metoprolol Succinate (ER) [Toprol Xl] 25 mg PO DAILY 06/28/17 [History] Ciprofloxacin HCl [Cipro] 500 mg PO Q12HR 02/19/18 [History] Phentermine HCl [Adipex-P] 37.5 mg PO QAM 02/19/18 [History] Potassium 99 mg PO DAILY 02/19/18 [History] Vitamin B Complex 1 cap PO DAILY 02/19/18 [History] Follow up Appointment(s)/Referral(s): Floyd Jorge DO [Primary Care Provider] - 1-2 days
--- NOTE | 2018-02-24 12:46 | P.PN ---
Subjective Patient's abdominal pain is much better today. No nausea no vomiting patient is able to tolerate full liquid diet today which will be advanced. Patient is presently on Zosyn for diverticulitis with the intramural abscess 02/24/2018 Patient is clinically doing well patient is being discharged today and antibiotics management as per surgery. Constitutional: Denied any fatigue denied any fever. Cardio vascular: denied any chest pain, palpitations Gastrointestinal denied any nausea vomiting Pulmonary: Denied any shortness of breath cough Neurologic denied any new focal deficits Objective - Vital Signs Vital signs: Vital Signs Temp 97.6 F 02/24/18 07:00 Pulse 64 02/24/18 07:00 Resp 16 02/24/18 07:00 BP 145/87 02/24/18 07:00 Pulse Ox 99 02/24/18 07:00 Intake & Output 02/23/18 02/24/18 02/24/18 18:59 06:59 18:59 Intake Total 1350 1075 240 Balance 1350 1075 240 Weight 95.708 kg Intake: Intake, IV Titration 650 725 Amount Piperacillin-Tazobactam 3 50 50 .375 gm In Dextrose/Water 1 50ml.bag @ 12.5 mls/hr IVPB Q8HR [facility] Rx#: [id number] Sodium Chloride 0.9% 1, 600 675 000 ml @ 75 mls/hr IV . [id number] [facility] Rx#:[id number] Oral 700 350 240 Other: Voiding Method Toilet # Voids 3 1 # Bowel Movements 1 - Exam PHYSICAL EXAMINATION: GENERAL: The patient is alert and oriented x3, not in any acute distress. Well developed, well nourished. HEENT: Pupils are round and equally reacting to light. EOMI. No scleral icterus. No conjunctival pallor. Normocephalic, atraumatic. No pharyngeal erythema. No thyromegaly. CARDIOVASCULAR: S1 and S2 present. No murmurs, rubs, or gallops. PULMONARY: Chest is clear to auscultation, no wheezing or crackles. ABDOMEN: Soft, nontender, nondistended, normoactive bowel sounds. No palpable organomegaly. MUSCULOSKELETAL: No joint swelling or deformity. EXTREMITIES: No cyanosis, clubbing, or pedal edema. NEUROLOGICAL: Gross neurological examination did not reveal any focal deficits. SKIN: No rashes. - Labs CBC & Chem 7: 02/23/18 05:37 02/21/18 11:25 Labs: Microbiology - Last 24 Hours (Table) 02/19/18 19:50 Blood Culture - Preliminary Blood No Growth after 96 hours Assessment and Plan Plan: -Diverticulitis with contained microperforation and a small abscess: No surgical intervention is being planned and patient is being discharged on oral antibiotics with close follow-up with cardiology. -Hypertension: Patient can continue metoprolol and will not require any diuretic therapy which was discontinued upon discharge -Severe osteoarthritis. -Hyperlipidemia continue with statin.
== END 2018-02-24 13:18 | disposition home or self-care (01) | DRG 392 ==
LOC: EC 17:40 → 3SUR 21:50
PROVIDERS: ADMIT Surgery; ATTEND Surgery
DX: K57.80 Diverticulitis of intestine, part unspecified, with perforation and abscess without bleeding (principal); I10 Essential (primary) hypertension; F32.9 Major depressive disorder, single episode, unspecified; K59.00 Constipation, unspecified; Z82.49 Family history of ischemic heart disease and other diseases of the circulatory system; Z85.41 Personal history of malignant neoplasm of cervix uteri; Z87.891 Personal history of nicotine dependence; Z90.710 Acquired absence of both cervix and uterus; Z96.653 Presence of artificial knee joint, bilateral; Z79.899 Other long term (current) drug therapy; Z88.5 Allergy status to narcotic agent; E78.5 Hyperlipidemia, unspecified; M19.90 Unspecified osteoarthritis, unspecified site
CPT/HCPCS: 36415; 74177; 80053; 81001; 82150; 83605; 83690; 85025; 87040; 87086; 96361; 96365; 96375; 96376; 99285